=== PATIENT | male | born 1955 | race Hispanic/Latino ===

== ENCOUNTER → 2024-10-03 | Outpatient (CLI) | payer OTHER ==
--- NOTE | 2024-10-03 11:13 | HMCIMG ---
Exam Type: US ABDOMINAL COMPLETE Clinical Information: LT LOWER QUADRANT PAIN Comparison: None Findings: The liver shows normal echogenicity and is otherwise unremarkable. The liver measures less than 16 cm in length. Doppler evaluation shows patent portal and hepatic veins. The gallbladder shows no significant abnormalities. Specifically, no calculi are seen. The gallbladder wall thickness is 1 mm. No bile duct dilatation is noted. The common bile duct measures 4 mm. The right kidney measures 9.2 x 4.3 cm. The left kidney measures 9 x 5.3 cm. Multiple simple cysts of the kidneys are seen. The kidneys are normal in size and echogenicity. No hydronephrosis or renal calculi are seen. There are no renal masses. The pancreas is unremarkable. The spleen is unremarkable. The aorta and inferior vena cava show no significant abnormalities. IMPRESSION: Simple cysts of the kidneys. Otherwise unremarkable exam.
--- NOTE | 2024-10-03 11:14 | HMCIMG ---
Bladder ultrasound Technique: Transabdominal ultrasound of the bladder was performed in pre and postvoid states. Findings: The urinary bladder appears unremarkable in pre-void full state. There are no bladder masses. No bladder calculi are seen. There are no areas of wall thickening to suggest inflammation or tumor. Ureter jets are present bilaterally confirming ureter patency. Post void film shows no significant residual. Prevoid volume is 230 cc. Post void volume is 13 cc. The prostate is enlarged in volume at 51 cc. Impression: Normal pre-and post void bladder ultrasound. Enlarged prostate.
== END | disposition home or self-care (01) ==
LOC: RAH 08:59
PROVIDERS: ATTEND Family Medicine
DX: N28.1 Cyst of kidney, acquired (principal); N40.0 Benign prostatic hyperplasia without lower urinary tract symptoms; R10.32 Left lower quadrant pain
CPT/HCPCS: 76700; 76857